=== PATIENT | female | born 1990 | race Caucasian/White ===

== ENCOUNTER 2017-01-03 23:06 | Emergency (ER) | payer OTHER | END 2017-01-04 03:38 | disposition home or self-care (01) | LOC: ER1 23:06 | DX: N39.0 Urinary tract infection, site not specified (principal) | CPT/HCPCS: 81001; 84703; 87086; 99283 ==

== ENCOUNTER 2017-01-23 16:23 | Emergency (ER) | payer OTHER ==
[2017-01-23 17:12] LABS: HEMOGLOBIN 11.6 gm/dl (12.3-15.3)
== END 2017-01-23 18:24 | disposition home or self-care (01) ==
LOC: ER1 16:23
PROVIDERS: Physician Assistant
DX: N93.8 Other specified abnormal uterine and vaginal bleeding (principal); F17.200 Nicotine dependence, unspecified, uncomplicated
CPT/HCPCS: 36415; 81001; 84443; 84703; 85014; 85018; 99284